=== PATIENT | female | born 1995 | race Caucasian/White ===

== ENCOUNTER 2018-01-27 18:08 | Emergency (ER) | payer OTHER ==
[~2018-01-27] VITALS: Ht 165.1 cm; Wt 60.0 kg
[2018-01-27] MEDS ORDERED: ACETAMINOPHEN 325MG TABLET PO ONE (18:45)
[2018-01-27 22:38] VITALS: BP 118/65
== END 2018-01-27 22:40 | disposition home or self-care (01) ==
LOC: ER 20:02
DX: O26.893 Other specified pregnancy related conditions, third trimester (principal); Z3A.32 32 weeks gestation of pregnancy; H60.92 Unspecified otitis externa, left ear
CPT/HCPCS: 99282